=== PATIENT | female | born 2005 | race Caucasian/White ===

== ENCOUNTER 2024-03-22 11:21 | Outpatient (CLI) | payer OTHER, SELFPAY | END 2024-03-22 11:22 | disposition home or self-care (01) | PROVIDERS: PCP Physician Assistant Medical; Visit Provider Physician Assistant Medical | DX: Z86.39 Personal history of other endocrine, nutritional and metabolic disease (principal); Z13.228 Encounter for screening for other metabolic disorders; Z13.220 Encounter for screening for lipoid disorders | CPT/HCPCS: 80053; 80061; 84443 ==

== ENCOUNTER 2025-03-26 10:50 | Outpatient (CLI) | payer OTHER, SELFPAY | END 2025-03-26 10:51 | disposition home or self-care (01) | LOC: FRMREF 10:50 | PROVIDERS: PCP Physician Assistant Medical; Visit Provider Physician Assistant Medical | DX: F41.9 Anxiety disorder, unspecified (principal); F32.A Depression, unspecified; Z86.39 Personal history of other endocrine, nutritional and metabolic disease | CPT/HCPCS: 84443 ==